=== PATIENT | female | born 1980 | race Caucasian/White ===

== ENCOUNTER 2020-07-21 10:12 | Emergency (ER) | payer SELFPAY ==
[2020-07-21 10:25] VITALS: BP 121/75; PULSE 68; TEMP 98.7; BMI 18.1
[2020-07-21] MEDS ORDERED: ACETAMINOPHEN 1000 MG/100 ML VIAL (NON FORMULARY) IVPB ONE (10:54)
[2020-07-21] MEDS ORDERED: ONDANSETRON 4 MG/2 ML VIAL IVPUSH ONE (10:54)
[2020-07-21 11:14] LABS: EPI CELLS 36 /uL (0-25.1); HCG,QUALITATIVE URINE Negative; HYALINE CASTS 2 /uL (0-3.1); PH,URINE 5.5 (5.0-8.0); URINE APPEARANCE CLEAR; URINE BACTERIA 2929 /uL (0-1359); URINE BILIRUBIN NEGATIVE (NEGATIVE); URINE COLOR YELLOW; URINE GLUCOSE (UA) 3+ (NEGATIVE); URINE KETONE TRACE (NEGATIVE); URINE LEUK ESTERASE TRACE (NEGATIVE); URINE NITRITE NEGATIVE (NEGATIVE); URINE PROTEIN NEGATIVE (NEGATIVE); URINE RBC 4 /uL (0-23.9); URINE UROBILINOGEN 0.2 mg/dL (0.2-1.0); URINE WBC 169 /uL (0-25.8)
[2020-07-21] MEDS ORDERED: ACETAMINOPHEN INJECTION 100 ML IVPB ONE (11:16)
[2020-07-21] MEDS ORDERED: ONDANSETRON 4 MG/2 ML VIAL ONE (11:16)
[2020-07-21 11:18] LABS: BASO % 0.7 % (0-2.0); HEMATOCRIT 31.5 % (32.4-45.2); LYMPH % 15.1 % (8-40); MCH 21.4 pg (25.7-33.7); MCHC 31.6 g/dl (32.0-36.0); MEAN CELL VOLUME 67.7 fl (80-96); MEAN PLT VOLUME 8.7 fl (7.5-11.1); MONO % 2.9 % (3.8-10.2); NEUT % 81.3 % (42.8-82.8); PLATELET COUNT 357 K/MM3 (134-434); RBC 4.65 M/mm3 (3.60-5.2); RDW 17.3 % (11.6-15.6); WHITE BLOOD COUNT 10.7 K/mm3 (4.0-10.0)
[2020-07-21 11:43] LABS: POTASSIUM 3.9 mmol/L (3.5-5.1)
[2020-07-21 11:45] LABS: ALBUMIN 3.6 g/dl (3.4-5.0); BLOOD UREA NITROGEN 7.2 mg/dL (7-18); CALCIUM 8.6 mg/dL (8.5-10.1)
[2020-07-21 11:48] LABS: CREATININE 0.6 mg/dL (0.55-1.3)
[2020-07-21 11:49] LABS: BILIRUBIN,TOTAL 0.4 mg/dL (0.2-1); TOT PROT 7.1 g/dl (6.4-8.2)
[2020-07-21 14:29] LABS: ANISOCYTOSIS 1+; MACROCYTOSIS 0; PLATELET ESTIMATE NORMAL
== END 2020-07-21 13:28 | disposition home or self-care (01) ==
LOC: JER 10:12
PROC: 3E0333Z Introduction of Anti-inflammatory into Peripheral Vein, Percutaneous Approach (ICD-10-PCS; principal; 2020-07-21)
PROC: 3E033GC Introduction of Other Therapeutic Substance into Peripheral Vein, Percutaneous Approach (ICD-10-PCS; 2020-07-21)
DX: R10.13 Epigastric pain (principal)
CPT/HCPCS: 36415; 76705-TC; 80053; 81003; 83690; 84703; 85025; 87077; 87086; 99285-25; J0131

== ENCOUNTER 2022-02-11 12:00 | Inpatient (IN) | payer OTHER ==
[2022-02-11 13:01] VITALS: BMI 30.3
[2022-02-11] MEDS ORDERED: CITRIC ACID/SODIUM CITRATE 30 ML UNIT-DOSE CUP PO ONE (14:03)
[2022-02-11] MEDS ORDERED: morphine SULFATE/PF 1 MG/2 ML (2cc Syringe - QUVA) ONE (14:04)
[2022-02-11] MEDS ORDERED: ONDANSETRON 4 MG/2 ML VIAL ONE (14:06)
[2022-02-11] MEDS ORDERED: ceFAZolin SODIUM 1 GM VIAL ONE (14:06)
[2022-02-11] MEDS ORDERED: ELECTROLYTE-148 SOLN 1,000 ML IV SCH (14:15)
[2022-02-11] MEDS ORDERED: KETAMINE HCL 500 MG/10 ML VIAL ONE (14:28)
[2022-02-11] MEDS ORDERED: METHYLERGONOVINE MALEATE 0.2 MG/1 ML AMP IM PRN (14:48)
[2022-02-11] MEDS ORDERED: WITCH HAZEL 50% (TUCKS) 40 PAD/JAR PAD TP PRN (14:48)
[2022-02-11] MEDS ORDERED: morphine SULFATE/PF 1 MG/2 ML (2cc Syringe - QUVA) EP ONE (15:06)
[2022-02-11] MEDS ORDERED: ONDANSETRON 4 MG/2 ML VIAL IVPUSH PRN (15:06)
[2022-02-11] MEDS ORDERED: IBUPROFEN 800 MG/8 ML IJ IVPB ONE (16:31)
[2022-02-11] MEDS: IBUPROFEN 800 MG/8 ML IJ IVPB PRN (16:35)
[2022-02-11] MEDS: OXYTOCIN 20 UNITS in 0.9% NS 20 UNIT/1,000 ML INFUS.BAG IV SCH (17:16)
[2022-02-11] MEDS: FERROUS SO4 325 MG TABLET (FP) PO SCH (22:28)
[2022-02-12] MEDS: IBUPROFEN 800 MG/8 ML IJ IVPB PRN (00:28)
[2022-02-12] MEDS ORDERED: oxyCODONE HCL 5 MG TABLET PO PRN (02:48)
[2022-02-12 08:35] VITALS: RESP 18
[2022-02-12 08:48] LABS: BASO % 0.2 % (0-2.0); EOS % 0.2 % (0-4.5); HEMATOCRIT 33.5 % (32.4-45.2); HEMOGLOBIN 10.8 GM/dL (10.7-15.3); LYMPH % 10.2 % (8-40); MCHC 32.2 g/dl (32.0-36.0); MEAN CELL VOLUME 77.7 fl (80-96); MEAN PLT VOLUME 9.3 fl (7.5-11.1); MONO % 6.4 % (3.8-10.2); PLATELET COUNT 278 10^3/uL (134-434); RDW 16.4 % (11.6-15.6); WHITE BLOOD COUNT 11.4 K/mm3 (4.0-10.0)
[2022-02-12] MEDS: FERROUS SO4 325 MG TABLET (FP) PO SCH ×2 (09:31→22:28)
[2022-02-12] MEDS: PRENATAL VITAMINS W/ FOLIC ACID TABLET (FP) PO SCH (09:31)
[2022-02-12] MEDS ORDERED: DIPHTH,PERTUSS(ACELL),TET 0.5 ML DISP.SYRIN IM ONE (10:00)
[2022-02-12] MEDS ORDERED: BISACODYL 10 MG SUPP.RECT RC PRN (14:48)
[2022-02-12] MEDS: OXYTOCIN 20 UNITS in 0.9% NS 20 UNIT/1,000 ML INFUS.BAG IV SCH (16:52)
[2022-02-12] MEDS: IBUPROFEN 600 MG TABLET (FP) PO PRN ×2 (17:04→22:28)
[2022-02-12] MEDS: ACETAMINOPHEN 325 MG TABLET (FP) PO PRN (17:53)
[2022-02-12] MEDS: SIMETHICONE 80 MG TAB.CHEW (FP) PO PRN (22:29)
[2022-02-13] MEDS: PRENATAL VITAMINS W/ FOLIC ACID TABLET (FP) PO SCH (09:30)
[2022-02-13] MEDS: FERROUS SO4 325 MG TABLET (FP) PO SCH ×2 (09:30→22:00)
[2022-02-13] MEDS: SIMETHICONE 80 MG TAB.CHEW (FP) PO PRN ×3 (09:30→22:00)
[2022-02-13] MEDS: IBUPROFEN 600 MG TABLET (FP) PO PRN ×2 (09:31→16:56)
[2022-02-13] MEDS: ACETAMINOPHEN 325 MG TABLET (FP) PO PRN (22:00)
[2022-02-14 08:53] LABS: BASO % 0.2 % (0-2.0); EOS % 0.4 % (0-4.5); HEMATOCRIT 32.5 % (32.4-45.2); HEMOGLOBIN 10.5 GM/dL (10.7-15.3); LYMPH % 11.6 % (8-40); MCHC 32.2 g/dl (32.0-36.0); MEAN CELL VOLUME 77.7 fl (80-96); MEAN PLT VOLUME 8.7 fl (7.5-11.1); MONO % 5.3 % (3.8-10.2); NEUT % 82.5 % (42.8-82.8); PLATELET COUNT 370 10^3/uL (134-434); RBC 4.18 M/mm3 (3.60-5.2); RDW 16.8 % (11.6-15.6); WHITE BLOOD COUNT 12.7 K/mm3 (4.0-10.0)
[2022-02-14] MEDS: IBUPROFEN 600 MG TABLET (FP) PO PRN (09:32)
[2022-02-14] MEDS: SIMETHICONE 80 MG TAB.CHEW (FP) PO PRN (09:32)
[2022-02-14] MEDS: FERROUS SO4 325 MG TABLET (FP) PO SCH (09:58)
[2022-02-14] MEDS: PRENATAL VITAMINS W/ FOLIC ACID TABLET (FP) PO SCH (09:58)
[2022-02-14 10:08] VITALS: BP 113/71; PULSE 80; TEMP 98.5
== END 2022-02-14 11:40 | disposition home or self-care (01) | DRG 560 ==
LOC: JLDR 12:00 → J3W 17:16
PROVIDERS: ADMIT Obstetrics & Gynecology; ATTEND Obstetrics & Gynecology
DX: O34.211 Maternal care for low transverse scar from previous cesarean delivery (principal); O24.425 Gestational diabetes mellitus in childbirth, controlled by oral hypoglycemic drugs; Z37.0 Single live birth; Z3A.38 38 weeks gestation of pregnancy
CPT/HCPCS: 36415; 80053; 85025; 85610; 85730; 86780; 86850; 86900; 86901; 88307-TC; 90715; C9803-CS; U0003; U0005